=== PATIENT | female | born 1955 | race Caucasian/White ===

== ENCOUNTER → 2017-04-04 | Emergency (ER) | payer MEDICARE, OTHER ==
[~2017-04-04] VITALS: Ht 165.1 cm; Wt 43.1 kg
[~2017-04-04] MED LIST: ATENOLOL25 MG PO; ATENOLOL50 MG PO; BACLOFEN10 MG PO; CATAPRES0.1 MG PO; DURAGESIC1 EAC1 TD; DURAGESIC1 EAC2 TP; DURAGESIC1 EACH TD; HYDROCODON-ACE1 EAC8 PO; LEVAQUIN500 MG PO; ONDANSETRON ODT4 MG PO; PERCOCET 5-3251 EACH PO; PHENERGAN50 MG PR; SYNTHROID125 MCG PO; TRAMADOL HCL50 MG PO; ZOFRAN ODT8 MG SL
== END ==
LOC: ED 03:08
DX: F11.23 Opioid dependence with withdrawal (principal); M79.7 Fibromyalgia; E03.9 Hypothyroidism, unspecified; F17.200 Nicotine dependence, unspecified, uncomplicated; Z90.89 Acquired absence of other organs; Z88.0 Allergy status to penicillin; Z88.2 Allergy status to sulfonamides; Z79.899 Other long term (current) drug therapy
CPT/HCPCS: 80053; 81001; 85025; 96361; 96374; 96375; 99283; J1170; J2405; J7030

== ENCOUNTER → 2017-06-18 | Emergency (ER) | payer MEDICARE, OTHER ==
[~2017-06-18] VITALS: Ht 165.1 cm; Wt 43.1 kg
== END ==
LOC: ED 16:26
DX: R11.2 Nausea with vomiting, unspecified (principal); E03.9 Hypothyroidism, unspecified; F17.200 Nicotine dependence, unspecified, uncomplicated; Z90.89 Acquired absence of other organs; Z88.0 Allergy status to penicillin; Z88.2 Allergy status to sulfonamides; Z79.899 Other long term (current) drug therapy
CPT/HCPCS: 80053; 85025; 96361; 96374; 96375; 99283; J1885; J2550; J7030

== ENCOUNTER 2017-06-19 22:46 | Emergency (ER) | payer MEDICARE, OTHER ==
[~2017-06-19] VITALS: Ht 165.1 cm; Wt 43.5 kg
[~2017-06-19 22:46] MED LIST changes: -PHENERGAN50 MG PR; -TRAMADOL HCL50 MG PO
[2017-06-19] MEDS ORDERED: BACLOFEN10 MG PO (23:06)
[2017-06-20] MEDS ORDERED: PHENERGAN50 MG PR (01:52)
[2017-06-20] MEDS ORDERED: TRAMADOL HCL50 MG PO (01:52)
== END 2017-06-20 02:17 | disposition home or self-care (01) ==
LOC: ED 22:46
DX: K29.00 Acute gastritis without bleeding (principal); F11.23 Opioid dependence with withdrawal; C64.1 Malignant neoplasm of right kidney, except renal pelvis; G89.4 Chronic pain syndrome; E03.9 Hypothyroidism, unspecified; F17.200 Nicotine dependence, unspecified, uncomplicated; Z88.0 Allergy status to penicillin; Z88.2 Allergy status to sulfonamides; Z79.899 Other long term (current) drug therapy; Z79.891 Long term (current) use of opiate analgesic
CPT/HCPCS: 74176; 80053; 81001; 85025; 96361; 96374; 96375; 99284; J1885; J2405; J7030

== ENCOUNTER 2019-04-27 11:50 | Emergency (ER) | payer MEDICARE ==
[~2019-04-27] VITALS: Ht 167.6 cm; Wt 44.9 kg
[~2019-04-27 11:50] MED LIST changes: +NALTREXONE HCL50 MG PO; +PHENERGAN50 MG PR; +TRAMADOL HCL50 MG PO
[2019-04-27] MEDS ORDERED: ONDANSETRON ODT8 MG PO (14:54)
== END 2019-04-27 16:01 | disposition home or self-care (01) ==
LOC: ED 11:50
DX: K52.9 Noninfective gastroenteritis and colitis, unspecified (principal); E03.9 Hypothyroidism, unspecified; F17.200 Nicotine dependence, unspecified, uncomplicated; Z88.0 Allergy status to penicillin; Z88.2 Allergy status to sulfonamides; Z79.899 Other long term (current) drug therapy
CPT/HCPCS: 80053; 81001; 83735; 85025; 96361; 96374; 96375; 96376; 99284-25; J2405; J2550; J7030

== ENCOUNTER 2019-09-23 10:46 | Emergency (ER) | payer MEDICARE ==
[~2019-09-23] VITALS: Ht 167.6 cm; Wt 45.4 kg
[~2019-09-23 10:46] MED LIST changes: +ONDANSETRON ODT8 MG PO
[2019-09-23] MEDS ORDERED: PROMETHAZINE HC25 M1 PO (13:25)
[2019-09-23] MEDS ORDERED: CYCLOBENZAPRINE10 MG PO (13:25)
[2019-09-23] MEDS ORDERED: ONDANSETRON ODT8 MG PO (13:25)
== END 2019-09-23 13:40 | disposition home or self-care (01) ==
LOC: ED 10:46
DX: M54.5 Low back pain (principal); E03.9 Hypothyroidism, unspecified; I10 Essential (primary) hypertension; F17.200 Nicotine dependence, unspecified, uncomplicated; Z88.2 Allergy status to sulfonamides; Z88.0 Allergy status to penicillin; Z79.899 Other long term (current) drug therapy
CPT/HCPCS: 81001; 96372; 99283-25; J1885

== ENCOUNTER 2019-12-19 10:54 | Emergency (ER) | payer MEDICARE ==
[~2019-12-19] VITALS: Ht 167.6 cm; Wt 44.0 kg
--- OUTSIDE RECORDS SUMMARY | ~2019-12-19 | XMS | Encounter Summary ---
Demographics + + + | Address | [address] | | | [place] [address] | + + + | Home Phone | | + + + | Preferred Language | Unknown | + + + | Marital Status | | + + + | Worship Affiliation | Unknown | + + + | Race | Unknown | + + + | Ethnic Group | Unknown | + + + Author + + + | Author | [facility] | | | and [place] | + + + | Organization | [facility] | | | and [place] [...] Team Providers + +------+ + | Care Border Police Name | Role | Phone | + +------+ + PCP | Unavailable | + +------+ + Encounter Details +--------+ + + + + | Date | Type | Department | Care Team | Description | +--------+ + + + + | 11/20/ | Hospital | [facility] | Chilo [facility]atorre | | | 1997 | Encounter | [facility] | | | | | | GENERIC OP CONV DEPT | | | | | | [address] | | | | | | [place] | | | | | | [address] | | | | | | [phone] | | | +--------+ + + + + Social History + +-------+ +--------+------+ | Tobacco [...] on file | | + + + + + + + | Job Start Date | Occupation | Industry | + + + + | Not on file | Not on file | Not on file | + + + + + + + + | Travel History | Travel Start | Travel End | + + + + + + | No recent travel history available. | + + documented as of this encounter Plan of Treatment Not on filedocumented as of this encounter Visit Diagnoses Not on filedocumented in this encounter"
--- OUTSIDE RECORDS SUMMARY | ~2019-12-19 | XMS | Clinical Summary ---
Demographics + + + | Address | [address] | | | [place] [address] | + + + | Home Phone | | + + + | Preferred Language | Unknown | + + + | Marital Status | | + + + | Jainism Affiliation | Unknown | + + + | Race | Unknown | + + + | Ethnic Group | Unknown | + + + Author + + + | Author | [facility] | | | and [place] | + + + | Organization | [facility] | | | and [place] [...] Team Providers + +------+ + | Care Concrete Mixer Truck Driver Name | Role | Phone | + [...] recent travel history available. | + + Last Filed Vital Signs Not on file Plan of Treatment + + + + + | Health Maintenance | Due Date | Last Done | Comments | + + + + + | Vaccine: | | | | | Dtap/Tdap/Td (1 - | 9 | | | | Tdap) | | | | + + + + + | Cervical Cancer | | | | | Screening (Pap) | 8 | | | + + + + + | Vaccine: Zoster (1 | | | | | of 2) | 8 | | | + + + + + | Breast Cancer | | | | | Screening | 3 | | | + + + + + | Vaccine: Influenza | | | | | (Season Ended) | 0 | | | + + + + + Results Not on filefrom Last 3 [...] +--------+ +---------+--------+ | MEDICARE | MEDICA | [id number] | 10/02/19 | [phone] | | Medica [...] Paul V | Person | Self | [birth year] | [address] | | | al/Fam | | 1956 | [phone] | [place] [address] | | | ean | | | 5 (Home) | | + +--------+ +--------+ + +"
--- OUTSIDE RECORDS SUMMARY | ~2019-12-19 | XMS | Clinical Summary ---
Demographics + + + | Address | [address] | | | [place] [address] | + + + | Home Phone | | + + + | Preferred Language | Unknown | + + + | Marital Status | | + + + | Jain Affiliation | Unknown | + + + | Race | Unknown | + + + | Ethnic Group | Unknown | + + + Author + + + | Author | [facility] | | | and [place] | + + + | Organization | [facility] | | | and [place] [...] Team Providers + +------+ + | Care Glued Wood Tester Name | Role | Phone | + [...] +--------+ +---------+--------+ | MEDICARE | MEDICA | [id number] | 10/02/19 | [phone] | | Medica [...] | 1956 | [phone] | [place] [address] | | | ean | | | 5 (Home) | | + +--------+ +--------+ + +"
--- OUTSIDE RECORDS SUMMARY | ~2019-12-19 | XMS | Encounter Summary ---
Demographics + + + | Address | [address] | | | [place] [address] | + + + | Home Phone | | + + + | Preferred Language | Unknown | + + + | Marital Status | | + + + | Mosque Affiliation | Unknown | + + + | Race | Unknown | + + + | Ethnic Group | Unknown | + + + Author + + + | Author | [facility] | | | and [place] | + + + | Organization | [facility] | | | and [place] [...] Team Providers + +------+ + | Care Otolaryngology Rep Name | Role | Phone | + +------+ + PCP | Unavailable | + +------+ + Encounter Details +--------+ + + + + | Date | Type | Department | Care Team | Description | +--------+ + + + + | 11/20/ | Hospital | [facility] | [facility] | | | 1997 | Encounter | [facility] | | | | | | GENERIC OP CONV DEPT | | | | | | [address] | | | | | | [place] | | | | | | [address] | | | | | | [phone] | | | +--------+ + + + [...]
[~2019-12-19 10:54] MED LIST changes: +CALTRATE 600 +1 EAC1 PO; +CYCLOBENZAPRINE10 MG PO; +INLYTA5 MG PO; +LAXATIVE5 M1 PO; +NORCO 7.5-3251 EACH PO; +OXYCODONE HCL10 MG PO; +OXYCODONE HCL5 MG PO; +OXYCONTIN10 MG PO; +PROMETHAZINE HC25 M1 PO
[2019-12-19] MEDS ORDERED: DILT-XR120 MG PO (11:11)
[2019-12-19] MEDS ORDERED: TRAMADOL HCL100 M2 PO (11:11)
[2019-12-19] MEDS ORDERED: PROCHLORPERAZIN10 MG PO (15:00)
[2019-12-19] MEDS ORDERED: DILAUDID2 MG PO (15:23)
== END 2019-12-19 15:18 | disposition home or self-care (01) ==
LOC: ED 10:54
DX: C64.9 Malignant neoplasm of unspecified kidney, except renal pelvis (principal); E86.0 Dehydration; E03.9 Hypothyroidism, unspecified; I10 Essential (primary) hypertension; Z87.891 Personal history of nicotine dependence; Z88.0 Allergy status to penicillin; Z88.2 Allergy status to sulfonamides; Z79.899 Other long term (current) drug therapy
CPT/HCPCS: 80053; 81001; 83735; 85025; 96361; 96374; 96375; 99284-25; J1170; J1790; J2405; J2550; J7030

== ENCOUNTER 2020-02-09 08:00 | Emergency (ER) | payer MEDICARE ==
[~2020-02-09] VITALS: Ht 167.6 cm; Wt 40.4 kg
--- OUTSIDE RECORDS SUMMARY | ~2020-02-09 | XMS | Clinical Summary ---
Demographics + + + | Address | [address] | | | [place] [address] | + + + | Home Phone | | + + + | Preferred Language | Unknown | + + + | Marital Status | | + + + | Latter-Day Affiliation | Unknown | + + + | Race | Unknown | + + + | Ethnic Group | Unknown | + + + Author + + + | Author | [facility] | | | and [place] | + + + | Organization | [facility] | | | and [place] | + + + | Address | Unknown | + + + | Phone | Unavailable | + + + Support + + +---------+ + | Name | Relationship | Address | Phone | + + +---------+ + | Nerissa Paul | ECON | Unknown | | + + +---------+ + | Kehidne Paul | ECON | Unknown | | + + +---------+ + Care Team Providers + +------+ + | Care Bakery Associate Name | Role | Phone | + [...] +--------+ +---------+--------+ | MEDICARE | MEDICA | [id number] | 10/02/19 | [phone] | | Medica [...] | 1956 | [phone] | [place] [address] | | | ean | | | 5 (Home) | | + +--------+ +--------+ + +"
--- OUTSIDE RECORDS SUMMARY | ~2020-02-09 | XMS | Encounter Summary ---
Demographics + + + | Address | [address] | | | [place] [address] | + + + | Home Phone | | + + + | Preferred Language | Unknown | + + + | Marital Status | | + + + | Alevism Affiliation | Unknown | + + + | Race | Unknown | + + + | Ethnic Group | Unknown | + + + Author + + + | Author | [facility] | | | and [place] | + + + | Organization | [facility] | | | and [place] [...] Team Providers + +------+ + | Care Activity Director Name | Role | Phone | + +------+ + PCP | Unavailable | + +------+ + Encounter Details +--------+ + + + + | Date | Type | Department | Care Team | Description | +--------+ + + + + | 11/20/ | Hospital | [facility] | [facility] | | | 1997 | Encounter | [facility] | | | | | | GENERIC OP CONV DEPT | | | | | | [address] | | | | | | [place] | | | | | | [address] | | | | | | [phone] | | | +--------+ + + + [...]
[~2020-02-09 08:00] MED LIST changes: +DILAUDID2 MG PO; +DILT-XR120 MG PO; +PROCHLORPERAZIN10 MG PO; +TRAMADOL HCL100 M2 PO; +XTAMPZA ER18 MG PO
[2020-02-09] MEDS ORDERED: PROMETHAZINE HC25 MG PR (10:43)
== END 2020-02-09 10:55 | disposition home or self-care (01) ==
LOC: ED 08:00
DX: C79.01 Secondary malignant neoplasm of right kidney and renal pelvis (principal); C80.1 Malignant (primary) neoplasm, unspecified; I10 Essential (primary) hypertension; Z87.891 Personal history of nicotine dependence; Z88.0 Allergy status to penicillin; Z88.2 Allergy status to sulfonamides; Z79.899 Other long term (current) drug therapy
CPT/HCPCS: 80053; 81001; 83605; 83690; 83735; 85025; 96361; 96374; 96375; 99284-25; J1170; J2405; J7030

== ENCOUNTER 2020-02-10 19:35 | Inpatient (IN) | payer MEDICARE, OTHER ==
[~2020-02-10] VITALS: Ht 167.6 cm; Wt 40.4 kg
--- OUTSIDE RECORDS SUMMARY | ~2020-02-10 | XMS | Clinical Summary ---
Demographics + + + | Address | [address] | | | [place] [address] | + + + | Home Phone | | + + + | Preferred Language | Unknown | + + + | Marital Status | | + + + | Church Affiliation | Unknown | + + + | Race | Unknown | + + + | Ethnic Group | Unknown | + + + Author + + + | Author | [facility] | | | and [place] | + + + | Organization | [facility] | | | and [place] | + + + | Address | Unknown | + + + | Phone | Unavailable | + + + Support + + +---------+ + | Name | Relationship | Address | Phone | + + +---------+ + | Nerissa Paul | ECON | Unknown | | + + +---------+ + | Kehinde Paul | ECON | Unknown | | + + +---------+ + Care Team Providers + +------+ + | Care Mineral Surveyor Name | Role | Phone | + +------+ + | Bernadine Mar | PCP | | + +------+ + Allergies Not on File Medications Not on file Active Problems Not on file Social History + +-------+ +--------+------+ | Tobacco Use | Types | Packs/Day | Years | Date | | | | | Used | | + +-------+ +--------+------+ | Never Assessed | | | | | + +-------+ +--------+------+ + + + | Sex Assigned at | Date Recorded | | | | + + + | Not on file | | + + + Last Filed Vital Signs Not on file Plan of Treatment + + +-------+ + | Health Maintenance | Due Date | Last | Comments | | | | Done | | + + +-------+ + | Vaccine: | | | | | Dtap/Tdap/Td (1 - | 7 | | | | Tdap) | | | | + + +-------+ + | Cervical Cancer | | | | | Screening (Pap) | 8 | | | + + +-------+ + | Vaccine: Zoster (1 | | | | | of 2) | 8 | | | + + +-------+ + | Breast Cancer | | | | | Screening | 3 | | | + + +-------+ + | Vaccine: Influenza | | | | | (#1) | 0 | | | + + +-------+ + Results Not on filefrom Last 3 Months Insurance + +--------+ +--------+ +---------+--------+ | Payer | Benefi | Subscriber | Effect | Phone | Address | Type | | | t Plan | ID | rochelle | | | | | | / | | Dates | | | | | | Group | | | | | | + +--------+ +--------+ +---------+--------+ | MEDICARE | MEDICA | [id number] | 10/02/19 | [phone] | | Medica | | | RE | | 07-Pre | 5 | | re | | | PART A | | sent | | | | | | AND B | | | | | | + +--------+ +--------+ +---------+--------+ + +--------+ +--------+ + + | Guarantor Name | Accoun | Relation to | Date | Phone | Billing Address | | | t Type | Patient | of | | | | | | | | | | + +--------+ +--------+ + + | Nando Paul V | Person | Self [birth year] | [address] | | | al/Fam | | 1956 | [phone] | [place] [address] | | | ean | | | 5 (Home) | | + +--------+ +--------+ + +"
--- OUTSIDE RECORDS SUMMARY | ~2020-02-10 | XMS | Encounter Summary ---
Demographics + + + | Address | [address] | | | [place] [address] | + + + | Home Phone | | + + + | Preferred Language | Unknown | + + + | Marital Status | | + + + | Jain Affiliation | Unknown | + + + | Race | Unknown | + + + | Ethnic Group | Unknown | + + + Author + + + | Author | [facility] | | | and [place] | + + + | Organization | [facility] | | | and [place] | + + + | Address | Unknown | + + + | Phone | Unavailable | + + + Support + + +---------+ + | Name | Relationship | Address | Phone | + + +---------+ + | Nerissa Paul | ECON | Unknown | | + + +---------+ + | eKhinde Paul | ECON | Unknown | | + + +---------+ + Care Team Providers + +------+ + | Care Handkerchief Cutter Name | Role | Phone | + +------+ + PCP | Unavailable | + +------+ + Encounter Details +--------+ + + + + | Date | Type | Department | Care Team | Description | +--------+ + + + + | 11/20/ | Hospital | [facility] | Chilo [facility]re | | | 1997 | Encounter | [facility] | | | | | | GENERIC OP CONV DEPT | | | | | | [address] | | | | | | [place] | | | | | | [address] | | | | | | [phone] | | | +--------+ + + + [...]
--- OUTSIDE RECORDS SUMMARY | ~2020-02-10 | XMS | Clinical Summary ---
Demographics + + + | Address | [address] | | | [place] [address] | + + + | Home Phone | | + + + | Preferred Language | Unknown | + + + | Marital Status | | + + + | Zoroastrianism Affiliation | Unknown | + + + | Race | Unknown | + + + | Ethnic Group | Unknown | + + + Author + + + | Author | [facility] | | | and [place] | + + + | Organization | [facility] | | | and [place] [...] Team Providers + +------+ + | Care Supervisor Fleshing Name | Role | Phone | + [...] +--------+ +---------+--------+ | MEDICARE | MEDICA | [id number] | 10/02/19 | [phone] | | Medica [...] | 1956 | [phone] | [place] [address] | | | ean | | | 5 (Home) | | + +--------+ +--------+ + +"
--- OUTSIDE RECORDS SUMMARY | ~2020-02-10 | XMS | Encounter Summary ---
Demographics + + + | Address | [address] | | | [place] [address] | + + + | Home Phone [...] | Author | [facility] | | | and [place] | + + + | Organization | [facility] | | | and [place] [...] Team Providers + +------+ + | Care Clinical Project Coordinator Name | Role | Phone | + +------+ + PCP | Unavailable | + +------+ + Encounter Details +--------+ + + + + | Date | Type | Department | Care Team | Description | +--------+ + + + + | 11/20/ | Hospital | [facility] | Chilo Alatorre | | | 1997 | Encounter | [facility] | | | | | | GENERIC OP CONV DEPT | | | | | | [address] | | | | | | [place] | | | | | | [address] | | | | | | [phone] | | | +--------+ + + + [...]
[~2020-02-10 19:35] MED LIST changes: +PROMETHAZINE HC25 MG PR
--- NOTE | 2020-02-10 23:00 | NUR ---
REPORT RECIEVED FROM HUB ASSOCIATE. PT TRANSPORTED BY VARNISH MAKER ON STRETCHER. DONOR RELATIONS OFFICER. PT ALERT AND ORIENTED UPON ARRIVAL. ABLE TO ASSIST IN MOVING FROM STRETCHER TO BED.
--- NOTE | 2020-02-10 23:52 | NUR ---
INITIAL ASSESSMENT COMPLETED. IV FLUIDS, MAGNESIUM, AND POTASSIUM INFUSING AT THIS TIME. PT GIVEN PAIN MEDICATION FOR GENERALIZED PAIN SHE RATED 8/10 (SEE EMAR). HEART RATE 90-115 AT REST. INCREASED INTO THE 130S WITH MOVEMENT. PT DENIES HAVING A HISTORY OF AFIB. PT SPO2 AT 99 PERCENT ON 2 L NC. RESPIRATIONS EVEN AND UNLABORED. UPON AUSCULTATION CRACKLES NOTED IN LEFT LOWER BASE. ALL OTHER HARRIS CLEAR.
--- NOTE | 2020-02-11 00:01 | NUR ---
PT COMPLAINS OF NAUSEA. PRN MEDICATION GIVEN AT THIS TIME (SEE EMAR).
--- NOTE | 2020-02-11 01:15 | NUR ---
PT RESTING. IV FLUIDS AND POTASSIUM CONTINUE TO INFUSE. BREATHING EVEN AND UNLABORED. HR 100-115 AT REST. NO FURTHER COMPLAINTS OF NAUSEA AT THIS TIME.
--- NOTE | 2020-02-11 01:50 | NUR ---
IN ROOM FOR MEDICATION ADMINISTRATION. PT STATES PAIN HAS RETURNED. PRN MEDICATION GIVEN (SEE EMAR). PT UP TO BEDSIDE COMMODE TO VOID. STEADY ON FEET. HEART RATE UP INTO THE 130S WITH ACTIVITY. PT BACK IN BED. IV FLUIDS AND POTASSIUM INFUSING. CALL LIGHT WITHIN REACH. WILL CONTINUE TO MONITOR.
--- NOTE | 2020-02-11 03:13 | NUR ---
PT REPORTS BEING NAUSEATED. PRN MEDICATION GIVEN AT THIS TIME (SEE EMAR).
--- NOTE | 2020-02-11 04:27 | NUR ---
PT ASSESSMENT COMPLETED AT THIS TIME. PT REPORTS NAUSEA HAS RESOLVED. HEART RATE MORE CONSISTENTLY IN THE 90-100. SPO2 = 100 PERCENT ON 2 L NC. SUPLEMENTAL 02 REMOVED AT THIST TIME. BREATH EVEN AND UNLABORED. LUNGS CLEAR THROUGH OUT. IV FLUIDS CONTINUE TO INFUSE. NO FURTHER NEEDS AT THIS TIME.
--- NOTE | 2020-02-11 05:15 | NUR ---
LAB IN ROOM FOR BLOOD DRAW
--- NOTE | 2020-02-11 06:01 | NUR ---
PT REQUESTING PAIN MEDICATION FOR 8/10 GENERALIZED PAIN. PRN MEDICATION ADMINISTERED (SEE EMAR).
--- NOTE | 2020-02-11 06:15 | NUR ---
DR JOHNSON UPDATED ON PTS BLOOD PRESSURES AND HEART RATE TRENDING UP. DR JOHNSON ALSO UPDATED ON PT LOW URINE OUTPUT. ORDERS RECIVED ( SEE EMAR).
--- NOTE | 2020-02-11 06:39 | NUR ---
PT STARTED ON DILTIAZEM DRIP AT 5 MG/ HR.
--- NOTE | 2020-02-11 06:41 | NUR ---
pT HAS BEEN ALERT AND ORIENTED THROUGH OUT THE SHIFT. HEART RATE FOR MAJORITY OF SHIFT WAS BETWEEN 95-115, WITH INCREASES WHILE TALKING OR MOVING INTO THE 140S. HEART RATED NOTED TO BE TRENDING UP INTO THE 120-130 MORE REGULARLY, WITH MORE FREQUENT EPISODES OF HEART RATE REACHING 150S. IV LOPRESSOR GIVEN EARLY, BUT HEART RATE CONTINUED TO BE ELEVATED. PLACED ON DILTIAZEM DRIP AT 0615. BLOOD PRESSURES HAVE TRENDED UP THROUGH THE NIGHT WELL. PTS HAD CRACKLES IN LEFT LOWER BASE DURING INITIAL ASSESSMENT. CRACKLES CLEARED AT 4 AM ASSESSMENT. PT URINE OUTPUT LOW.
--- NOTE | 2020-02-11 09:14 | EKG ---
[facility] [address] [place], [place] [address] Signed Atrial fibrillation with rapid ventricular response Anteroseptal infarct , age undetermined ST \T\ T wave abnormality, consider inferolateral ischemia Abnormal ECG No previous ECGs available Confirmed by VIVIANA JOHNSON MD ([id number]) on 02/11/2020 9:14:01 AM Electronically Signed By: VIVIANA JOHNSON MD 02/11/20 0914 PATIENT NAME: TREYBLANEINESSA SHARIF Electrocardiogram DATE OF : 59 PHYSICIAN: VIVIANA JOHNSON MD REPORT #: [id number] REPORT IS CONFIDENTIAL AND NOT TO BE RELEASED WITHOUT AUTHORIZATION
--- NOTE | 2020-02-11 09:25 | NUR ---
PATIENT SITTING UP IN BED EATING HER CLEAR LIQUID TRAY. PT WAS MEDICATED FOR PAIN (SEE EMAR) AROUND 0900.
--- NOTE | 2020-02-11 10:59 | NUR ---
DR. JOHNSON IN TO SEE PATIENT. PATIENT WILL BE ADVANCED ON HER DIET AND SWITCHED TO ORAL MEDICATIONS. LUNCH ORDERED FOR PATIENT.
--- NOTE | 2020-02-11 12:09 | NUR ---
PATIENT SITTING UP EATING LUNCH AT THIS TIME. PT GIVEN ORAL MEDICATIONS AND DISCUSSED MEDICATION SIDE EFFECTS WITH PATIENT. PATIENT ABLE TO VERBALIZE UNDERSTANDING. DILT GTT REMAINS ON AT 5 MG/HR AND WILL BE TURNED OFF AROUND 1300, AN HOUR AFTER ORAL MEDICATIONS WERE GIVEN. PT EXPECTING HER DAUGHTER TO ARRIVE WITH HER HOME MEDICATIONS, INCLUDING HER ORAL CHEMO MEDICATION.
[2020-02-11] MEDS ORDERED: PROCHLORPERAZIN10 MG PO (13:36)
--- NOTE | 2020-02-11 15:43 | NUR ---
PATIENT RESTING IN BED AT THIS TIME. ICE PACK MADE FOR PATIENT FOR HER LEFT ARM WHERE HER IV WAS AND THE BLOOD PRESSURE CUFF HAS BEEN ON. PATIENT DENIES FURTHER NEEDS. DILT GTT HAS BEEN OFF SINCE 1300. PT REMAINS IN SINUS WITH SOME PACs NOTED BUT NOT FURTHER AFIB OR AFLUTTER.
--- NOTE | 2020-02-11 16:31 | NUR ---
Medications reconciled using pharmacy records and patient interview. Patient will take her own Inlyta chemo med while an impatient. Please use precautions, medication is considered teratogenic. Please assure that medication is returned to patient upon discharge
--- NOTE | 2020-02-11 17:09 | NUR ---
VITALS CHARTED. PATIENT UP IN BED EATING DINNER. CALL LIGHT IN REJ
--- NOTE | 2020-02-11 17:59 | NUR ---
PATIENT AGREEABLE TO STAY TONIGHT AND LIKELY D/C TOMORROW. PT WANTING TO D/C HOME TONIGHT, BUT STILL HAD SOME RUNS OF AFIB AROUND 1230. PT IS NOW OFF IVF AND DILT GTT REMAINS OFF. HR IN THE 60s SINUS. CONTINUE TO MONITOR.
--- NOTE | 2020-02-11 19:44 | NUR ---
PT REPORT RECIEVED, CARE OF PATIENT ASSUMED AT THIS TIME. PT COMPLAINS OF 8/10 PAIN. PRN PAIN MEDICATION ADMINISTERED. PT AWARE THAT SHE WILL BE TRANSFERING TO MEDICAL FLOOR. ALL QUESTIONS ANSWERED. NO FURTHER NEEDS AT THIS TIME.
--- NOTE | 2020-02-11 19:52 | NUR ---
tele monitor put on pt. pt's items gathered and is ready for transport. VS taken by this ORTHOPEDIC PHYSICIAN ASSISTANT and WILLIS Ding recorded.
--- NOTE | 2020-02-11 20:11 | NUR ---
pt report given to stand up comedian. pt transported via bed on telemetry. all belonging taken with pt.
--- NOTE | 2020-02-11 20:26 | NUR ---
PT IS ORIENTED TO THE UNIT AND CALL LIGHT IS CLOSE. SHE DENIES NEEDS AT THIS TIME. CHEMO MED PUT IN KITSLIST.
--- NOTE | 2020-02-11 22:27 | NUR ---
ASSESSMENT, VS AND I&O COMPLETED. LUNGS CLEAR, BOWEL TONES ACTIVE. SCATTERED BRUISING NOTED. NO EDEMA. PAIN 6/10, ICE PACKS PROVIDED. ICE WATER PROVIDED. CMS INTACT. NO OTHER NEEDS AT THIS TIME. CALL LIGHT IN REACH.
--- NOTE | 2020-02-12 00:19 | NUR ---
PT STATES PAIN IS 8/10, PRN PAIN MED PROVIDED. NO OTHER NEEDS AT THIS TIME. CALL LIGHT IN REACH.
--- NOTE | 2020-02-12 02:05 | NUR ---
PT RESTING IN BED, EYES CLOSED. RR EVEN, UNLABORED. CALL LIGHT IN REACH.
--- NOTE | 2020-02-12 04:05 | NUR ---
PT RESTING IN BED, EYES CLOSED. RR EVEN, UNLABORED. CALL LIGHT IN REACH.
--- NOTE | 2020-02-12 06:29 | NUR ---
ASSESSMENT, VS AND I&O COMPLETED. PAIN 7/10, PRN PAIN MED PROVIDED. PT REPORTS NAUSEA, PRN NAUSEA MED PROVIDED. IV WNL. LUNGS CLEAR. BOWEL TONES ACTIVE. ICE WATER PROVIDED. ICE PACK PROVIDED. NO OTHER NEEDS AT THIS TIME. CALL LIGHT IN REACH.
--- NOTE | 2020-02-12 07:59 | NUR ---
PT RESTING IN BED DENIES DISCOMFORTS OR NEEDS OF. REFUSES BREAKFAST ANTICIPATING DC.
[2020-02-12] MEDS ORDERED: KEYTRUDA100 MG/4 M IV (08:15)
--- NOTE | 2020-02-12 08:41 | NUR ---
PATIENT RESTING IN BED. WHITE BOARD UPDATED. PATIENT REFUSED TO TAKE A SHOWER BECAUSE SHE SAYS SHE IS GOING TO BE DISCHARGE HOME AND PREFERS TO TAKE A SHOWER AT HOME. CALL LIGHT WITHIN REACH. NO OTHER NEEDS AT THIS TIME.
--- NOTE | 2020-02-12 10:09 | NUR ---
DR JOHNSON IN TO SEE PT DC PLANS DISCUSSED QUESTIONS ANSWERED
[2020-02-12] MEDS ORDERED: ATENOLOL50 MG PO (10:23)
== END 2020-02-12 10:45 | disposition home or self-care (01) | DRG 309 ==
LOC: ED 19:35 → CCU 22:04 → MS 02-11 20:15
PROVIDERS: ADMIT Internal Medicine
DX: I48.0 Paroxysmal atrial fibrillation (principal); N17.9 Acute kidney failure, unspecified; C64.1 Malignant neoplasm of right kidney, except renal pelvis; C78.00 Secondary malignant neoplasm of unspecified lung; C79.51 Secondary malignant neoplasm of bone; C79.2 Secondary malignant neoplasm of skin; C79.02 Secondary malignant neoplasm of left kidney and renal pelvis; Z20.828 Contact with and (suspected) exposure to other viral communicable diseases; E86.0 Dehydration; E83.42 Hypomagnesemia; G89.3 Neoplasm related pain (acute) (chronic); T45.1X5A Adverse effect of antineoplastic and immunosuppressive drugs, initial encounter; I10 Essential (primary) hypertension; K29.70 Gastritis, unspecified, without bleeding; Z87.891 Personal history of nicotine dependence; Z88.0 Allergy status to penicillin; Z88.2 Allergy status to sulfonamides; Z79.899 Other long term (current) drug therapy; Z79.891 Long term (current) use of opiate analgesic
CPT/HCPCS: 36415; 71045; 80048; 80053; 83690; 83735; 84484; 85025; 93005; 93010; 96361; 96374; 96375; 99285-25; C9803; J0780; J1650; J2405; J3010; J3475; J3480; J7030; J7121; U0002

== ENCOUNTER 2020-04-03 14:23 | Emergency (ER) | payer MEDICARE ==
[~2020-04-03] VITALS: Ht 167.6 cm; Wt 38.1 kg
--- OUTSIDE RECORDS SUMMARY | ~2020-04-03 | XMS | Encounter Summary ---
Demographics + + + | Address | [address] | | | [place] [address] | + + + | Home Phone | | + + + | Preferred Language | Unknown | + + + | Marital Status | | + + + | Congregation Affiliation | Unknown | + + + | Race | White | + + + | Ethnic Group | Not or | + + + Author + + + | Author | [facility] | | | and [place] | + + + | Organization | [facility] | | | [...] Team Providers + +------+ + | Care Full Stack Web Developer Name | Role | Phone | + +------+ + PCP | Unavailable | + +------+ + Encounter Details +--------+ + + + + | Date | Type | Department | Care Team | Description | +--------+ + + + + | 11/20/ | Hospital | [facility] | Chilo [facility]atorre | | | 1997 | Encounter | [facility] | | | | | | GENERIC OP CONV DEPT | | | | | | [address] | | | | | | [place], [place] | | | | | | [address] | | | | | | [phone] | | | +--------+ + + + [...]
--- OUTSIDE RECORDS SUMMARY | ~2020-04-03 | XMS | Clinical Summary ---
Demographics + + + | Address | [address] | | | [place] [address] | + + + | Home Phone | | + + + | Preferred Language | Unknown | + + + | Marital Status | | + + + | Jainism Affiliation | Unknown | + + + | Race | White | + + + | Ethnic Group | Not or | + + + Author + + + | Author | [facility] | | | and [place] | + + + | Organization | [facility] | | | [...] Team Providers + +------+ + | Care Headlight Assembler Name | Role | Phone | + [...] +--------+ +---------+--------+ | MEDICARE | MEDICA | [id number] | 10/02/19 | [phone] | | Medica [...] | 1956 | [phone] | [place] [address] | | | ean | | | 5 (Home) | | + +--------+ +--------+ + + | Nando Paul V | Person | Self | [birth year] | | [address] | | | al/Fam | | 1956 | [phone] | [place] [address] | | | ean | | | 5 (Home) | | + +--------+ +--------+ + +"
[~2020-04-03 14:23] MED LIST changes: +KEYTRUDA100 MG/4 M IV
[2020-04-03] MEDS ORDERED: CITALOPRAM HBR10 MG PO (14:35)
[2020-04-03] MEDS ORDERED: CHILDREN'S ASPI81 M1 PO (14:35)
[2020-04-03] MEDS ORDERED: XTAMPZA ER18 MG PO (14:36)
[2020-04-03] MEDS ORDERED: HYDROMORPHONE HC2 MG PO (14:37)
[2020-04-03] MEDS ORDERED: ATIVAN1 MG PO (14:38)
--- NOTE | 2020-04-04 15:20 | EKG ---
[facility] [address] [place] [address] Signed Sinus rhythm with marked sinus arrhythmia Right atrial enlargement Anteroseptal infarct (cited on or before 10-FEB-2020) Abnormal ECG When compared with ECG of 10-FEB-2020 19:42, Sinus rhythm has replaced Atrial fibrillation Vent. rate has decreased BY 59 BPM Non-specific change in ST segment in Inferior leads T wave inversion no longer evident in Inferior leads T wave inversion more evident in Anterior leads Confirmed by EUSEBIO VEGA MD ([id number]) on 04/04/2020 3:20:26 PM Electronically Signed By: EUSEBIO VEGA MD 04/04/20 1520 PATIENT NAME: VERNA YANG Electrocardiogram DATE OF : 59 PHYSICIAN: EUSEBIO VEGA MD REPORT #: [id number] REPORT IS CONFIDENTIAL AND NOT TO BE RELEASED WITHOUT AUTHORIZATION
== END 2020-04-03 19:30 | disposition home or self-care (01) ==
LOC: ED 14:23
DX: C78.7 Secondary malignant neoplasm of liver and intrahepatic bile duct (principal); C80.1 Malignant (primary) neoplasm, unspecified; E03.9 Hypothyroidism, unspecified; I10 Essential (primary) hypertension; F17.200 Nicotine dependence, unspecified, uncomplicated; Z88.0 Allergy status to penicillin; Z88.2 Allergy status to sulfonamides; Z79.899 Other long term (current) drug therapy
CPT/HCPCS: 80053; 81001; 83690; 83735; 84484; 85025; 93005; 93010; 96361; 96374; 96375; 99284-25; J0780; J2405; J2765; J3010; J7030

== ENCOUNTER 2020-04-05 08:52 | Emergency (ER) | payer MEDICARE ==
[~2020-04-05] VITALS: Ht 167.6 cm; Wt 38.1 kg
--- OUTSIDE RECORDS SUMMARY | ~2020-04-05 | XMS | Encounter Summary ---
Demographics + + + | Address | [address] | | | [place] [address] | + + + | Home Phone | | + + + | Preferred Language | Unknown | + + + | Marital Status | | + + + | Faith Affiliation | Unknown | + + + | Race | White | + + + | Ethnic Group | Not or | + + + Author + + + | Author | [facility] | | | and [place] | + + + | Organization | [facility] | | | and [place] | + + + | Address | [...] Team Providers + +------+ + | Care Nurses Educator Name | Role | Phone | + +------+ + PCP | Unavailable | + +------+ + Encounter Details +--------+ + + + + | Date | Type | Department | Care Team | Description | +--------+ + + + + | 11/20/ | Hospital | [facility] | [facility] | | | 1997 | Encounter | [facility] | | | | | | GENERIC OP CONV DEPT | | | | | | [address] | | | | | | [place], [place] | | | | | | [address] | | | | | | [phone] | | | +--------+ + + + [...] on file | | + + + documented as of this encounter Plan of Treatment Not on filedocumented as of this encounter Visit Diagnoses Not on filedocumented in this encounter"
--- OUTSIDE RECORDS SUMMARY | ~2020-04-05 | XMS | Clinical Summary ---
Demographics + + + | Address | [address] | | | [place] [address] | + + + | Home Phone | | + + + | Preferred Language | Unknown | + + + | Marital Status | | + + + | Jainism Affiliation | Unknown | + + + | Race | White | + + + | Ethnic Group | Not or | + + + Author + + + | Author | [facility] | | | and [place] | + + + | Organization | [facility] | | | and [...] Team Providers + +------+ + | Care Log Hauler Name | Role | Phone | + +------+ + | Bernadine Mar | PCP | Unavailable | + +------+ + Allergies Not on [...] +--------+ +---------+--------+ | MEDICARE | MEDICA | [id number] | 10/02/19 | [phone] | | Medica [...] Paul V | Person | Self | [birth year][address] | | [address] | | | al/Fam | | 1956 | [phone] | [place] [address] | | | ean | | | 5 (Home) | | + +--------+ +--------+ + + | Nando Paul V | Person | Self | [address] | | [address] | | | al/Fam | | 1956 | [phone] | [place] [address] | | | ean | | | 5 (Home) | | + +--------+ +--------+ + +"
[~2020-04-05 08:52] MED LIST changes: +ATIVAN1 MG PO; +CHILDREN'S ASPI81 M1 PO; +CITALOPRAM HBR10 MG PO; +HYDROMORPHONE HC2 MG PO
--- NOTE | 2020-04-05 17:25 | EKG ---
[facility] [address] [facility] [place] [address] Signed Sinus rhythm with premature atrial complexes with aberrant conduction Right atrial enlargement Anterior infarct (cited on or before 10-FEB-2020) ST \T\ T wave abnormality, consider lateral ischemia Abnormal ECG When compared with ECG of 05-APR-2020 09:00, (Unconfirmed) No significant change was found Confirmed by EUSEBIO VEGA MD ([id number]) on 04/05/2020 5:25:03 PM Electronically Signed By: EUSEBIO VEGA MD 04/05/20 1725 PATIENT NAME: VERNA YANG Electrocardiogram DATE OF : 59 PHYSICIAN: EUSEBIO VEGA MD REPORT #: [id number] REPORT IS CONFIDENTIAL AND NOT TO BE RELEASED WITHOUT AUTHORIZATION
--- NOTE | 2020-04-05 17:25 | EKG ---
[facility] [address] [facility] [place] [address] Signed Sinus rhythm with premature atrial complexes with aberrant conduction Right atrial enlargement Anteroseptal infarct (cited on or before 10-FEB-2020) ST \T\ T wave abnormality, consider lateral ischemia Abnormal ECG When compared with ECG of 05-APR-2020 08:58, (Unconfirmed) Significant changes have occurred Confirmed by EUSEBIO VEGA MD ([id number]) on 04/05/2020 5:24:49 PM Electronically Signed By: EUSEBIO VEGA MD 04/05/20 1725 PATIENT NAME: VERNA YANG Electrocardiogram DATE OF : 59 PHYSICIAN: EUSEBIO VEGA MD REPORT #: [id number] REPORT IS CONFIDENTIAL AND NOT TO BE RELEASED WITHOUT AUTHORIZATION
== END 2020-04-05 13:04 | disposition home or self-care (01) ==
LOC: ED 08:52
DX: I48.91 Unspecified atrial fibrillation (principal); C79.00 Secondary malignant neoplasm of unspecified kidney and renal pelvis; E78.5 Hyperlipidemia, unspecified; E03.9 Hypothyroidism, unspecified; I10 Essential (primary) hypertension; Z87.891 Personal history of nicotine dependence; Z88.0 Allergy status to penicillin; Z88.2 Allergy status to sulfonamides; Z79.899 Other long term (current) drug therapy
CPT/HCPCS: 71045; 80053; 81001; 83735; 84484; 85025; 93005; 93010; 96361; 96374; 99285-25; J3010; J7030

== ENCOUNTER 2020-05-10 09:18 | Emergency (ER) | payer MEDICARE, OTHER ==
[~2020-05-10] VITALS: Ht 167.6 cm; Wt 41.3 kg
--- OUTSIDE RECORDS SUMMARY | ~2020-05-10 | XMS | Encounter Summary ---
Demographics + + + | Address | [address] | | | [place] [address] | + + + | Home Phone | | + + + | Preferred Language | Unknown | + + + | Marital Status | | + + + | Jainism Affiliation | Unknown | + + + | Race | White | + + + | Ethnic Group | Not or | + + + Author + + + | Author | [facility] | | | and [place] | + + + | Organization | [facility] | | | and [...] Team Providers + +------+ + | Care Cooler Man Name | Role | Phone | + +------+ + PCP | Unavailable | + +------+ + Encounter Details +--------+ + + + + | Date | Type | Department | Care Team | Description | +--------+ + + + + | 11/20/ | Hospital | [facility] | [facility] | | | 1997 | Encounter | [facility] | | | | | | GENERIC OP CONV DEPT | | | | | | [address] | | | | | | [place], [place] | | | | | | [address] | | | | | | [phone] | | | +--------+ + + + [...]
--- OUTSIDE RECORDS SUMMARY | ~2020-05-10 | XMS | Clinical Summary ---
Demographics + + + | Address | [address] | | | [place] [address] | + + + | Home Phone | | + + + | Preferred Language | Unknown | + + + | Marital Status | | + + + | Presybeterian Affiliation | Unknown | + + + | Race | White | + + + | Ethnic Group | Not or | + + + Author + + + | Author | [facility] | | | and [place] | + + + | Organization | [facility] | | | and [...] Team Providers + +------+ + | Care Technology Sales Specialist Name | Role | Phone | + [...] +--------+ +---------+--------+ | MEDICARE | MEDICA | [id number] | 10/02/19 | [phone] | | Medica [...] | 1956 | [phone] | [place] [address] | | | ean | | | 5 (Home) | | + +--------+ +--------+ + +"
== END 2020-05-10 15:57 | disposition home or self-care (01) ==
LOC: ED 09:18
DX: R11.2 Nausea with vomiting, unspecified (principal); C64.9 Malignant neoplasm of unspecified kidney, except renal pelvis; R10.9 Unspecified abdominal pain; E03.9 Hypothyroidism, unspecified; I10 Essential (primary) hypertension; Z87.891 Personal history of nicotine dependence; Z88.0 Allergy status to penicillin; Z88.2 Allergy status to sulfonamides; Z79.899 Other long term (current) drug therapy; Z79.82 Long term (current) use of aspirin; Z79.891 Long term (current) use of opiate analgesic
CPT/HCPCS: 80053; 81001; 83735; 85025; 96361; 96374; 96375; 96376; 99284-25; J1790; J2405; J7030; J7040

== ENCOUNTER 2020-06-10 07:20 | Emergency (ER) | payer MEDICARE, OTHER ==
[~2020-06-10] VITALS: Ht 167.6 cm; Wt 43.5 kg
== END 2020-06-10 10:07 | disposition home or self-care (01) ==
LOC: ED 07:20
DX: R20.0 Anesthesia of skin (principal); R53.1 Weakness; C64.9 Malignant neoplasm of unspecified kidney, except renal pelvis; C76.52 Malignant neoplasm of left lower limb; C41.2 Malignant neoplasm of vertebral column; E03.9 Hypothyroidism, unspecified; I10 Essential (primary) hypertension; F17.200 Nicotine dependence, unspecified, uncomplicated; Z88.0 Allergy status to penicillin; Z88.2 Allergy status to sulfonamides; Z79.899 Other long term (current) drug therapy; Z79.82 Long term (current) use of aspirin; Z79.891 Long term (current) use of opiate analgesic
CPT/HCPCS: 72128; 72131; 80053; 85025; 96374; 96375; 96376; 99285-25; J1170; J2405; J7040

== ENCOUNTER 2020-06-11 10:38 | Emergency (ER) | payer MEDICARE, OTHER ==
[~2020-06-11] VITALS: Ht 167.6 cm; Wt 41.3 kg
== END 2020-06-11 21:45 | disposition short-term general hospital (02) ==
LOC: ED 10:38
DX: C79.49 Secondary malignant neoplasm of other parts of nervous system (principal); C64.9 Malignant neoplasm of unspecified kidney, except renal pelvis; E03.9 Hypothyroidism, unspecified; I10 Essential (primary) hypertension; F17.200 Nicotine dependence, unspecified, uncomplicated; Z88.0 Allergy status to penicillin; Z88.2 Allergy status to sulfonamides; Z79.899 Other long term (current) drug therapy; Z79.82 Long term (current) use of aspirin; Z79.891 Long term (current) use of opiate analgesic
CPT/HCPCS: 72146; 72148; 80053; 85025; 96374; 96375; 96376; 99285-25; J1100; J1170; J7040

== ENCOUNTER 2020-07-02 14:25 | Inpatient (IN) | payer MEDICARE, OTHER ==
[~2020-07-02] VITALS: Ht 167.6 cm; Wt 45.0 kg
[~2020-07-02 14:25] MED LIST changes: -CHILDREN'S ASPI81 M1 PO; -CITALOPRAM HBR10 MG PO; +CITALOPRAM HBR40 MG PO; +DILAUDID8 MG PO; -HYDROMORPHONE HC2 MG PO; +LOW DOSE ASPIRI81 MG PO
[2020-07-02] MEDS ORDERED: PRILOSEC OTC20 MG PO (18:24)
[2020-07-02] MEDS ORDERED: OMEPRAZOLE20 MG PO ×2 (18:26)
[2020-07-02] MEDS ORDERED: DECADRON4 MG PO ×2 (18:28)
[2020-07-02] MEDS ORDERED: SENNA8.6 MG PO ×2 (18:29)
[2020-07-02] MEDS ORDERED: NEURONTIN300 MG PO ×2 (18:30)
--- NOTE | 2020-07-02 18:31 | NUR ---
IV SITE IS INTACT, NO REDNESS OR SWELLING NOTED, FLUIDS AND FLUSHES INFUSE EASILY. PT IS ALERT AND ORIENTED TALKING WITH HER DAUGHTER AT THE BEDSIDE, EATING PUDDING ON HER OWN.
[2020-07-02] MEDS ORDERED: XTAMPZA ER27 MG PO ×2 (18:33)
[2020-07-02] MEDS ORDERED: NARCAN4 MG NAS ×2 (18:35)
[2020-07-02] MEDS ORDERED: LIDODERM1 EACH TOP ×2 (18:38)
--- NOTE | 2020-07-02 19:10 | NUR ---
AT APPROXIMATLY 1740 PT ARIVED TO CCU FROM ER VIA STRETCHER. PT IS ALERT AND ORIENTED X4, REPORTS WEAKNESS, DENIES NAUSEA AT THIS TIME. PT IS HEAVY ONE PERSON ASSIST UP TO BEDSIDE COMMODE. PT UNABLE TO VOID ANY URINE, BRIEF IN PLACE, PT ASSISTED TO BED. MULTIPLE WARM BLANKETS GIVEN. PT HIPS AND KNEES SUPPORTED WITH PILLOWS. NOTED THAT PT APPEARS TO HAVE NO FATTY PADDING ON HER BODY, SKELITAL APPEARENCE. PT REPORTS SORE SPOTS ON ELBOWS AND HEELS. PADDED BANDAGE IN PLACE ON COCCIX. SKIN MOSTLY INTACT, BUT VERY FRAGILE. PT LUNGS ARE DIM IN ALL LOBES, MAINTAINS O2 SATS IN MID 90'S ON ROOM AIR.
--- NOTE | 2020-07-02 19:30 | NUR ---
pt report received. in room with day shift rn to meet patient and daughter. Pt resting in bed, floated on pillows. discussed plan of care for evening. IV fluids and diltiazem drip infusing. Xtampza taken from bedside and counted with RN Haily and place in thudge. 26 pills counted.
--- NOTE | 2020-07-02 20:17 | NUR ---
pt up to bsc. one person assist required. pt urine nab colored. Heart rate up into the 130s with activity. back in bed. diltazem drip titrated up to 7.5 mg/hr. pt given a lunch box and hot chocolate. call light within reach. will closely monitor.
--- NOTE | 2020-07-02 21:00 | NUR ---
pt resting with eyes closed. diltiazem drip infusing at 7.5 mg/hr. pt requesting pain medication. provided education about medication timing and dosage. all questions answered. call light within reach. no further needs at this time.
--- NOTE | 2020-07-02 22:00 | NUR ---
pt given prn medication for pain (see emar). reports generalized pain she rates 8/10 at this time. assisted with repositioning in bed, floated on pillows. Heels, elbows, and other bony prominences padded to protect skin.
--- NOTE | 2020-07-02 23:14 | NUR ---
diltiazem drip titrated down to 5 mg. pt heart rate regularly in the 70s with fluxuations up into 110's and down into the 60's. Rhythm is atrial fibrillation. The pt is sleeping, breathing even and unlabored. will continue to closely monitor.
--- NOTE | 2020-07-02 23:30 | NUR ---
PT REQUESTING TO BE REPOSITIONED IN THE BED. REPOISITOINED TO LEFT SIDE. ASSESSMENT COMPLETED AT THIS TIME. PT HEART RATE 70-90S WITH A AFIB RHYTHM. PT DENIES DIZZINESS, BUT REPORTS GENERALIZED PAIN SHE RATES 6/10. LUNGS SOUND DIMINISHED IN BOTH BASES. UPPER AIRWAYS REMAIN CLEAR. BONY PROMINENCES CUSHIONED. DILTIAZEM CONTINUES TO INFUSE AT 5 MG/HR. IV FLUIDS INFUSING. WILL CONTINUE TO MONITOR.
--- NOTE | 2020-07-03 00:50 | NUR ---
pt heart rate primariily into the 60s, but dropped into the high30's breifly. diltalizem drip placed on stand by at this time.
--- NOTE | 2020-07-03 02:00 | NUR ---
pt given oral cardizem and prn medication for pain at this time (see emar). Denies need to reposition. call light within reach. no further needs at this time.
--- NOTE | 2020-07-03 04:30 | NUR ---
In room for assessment. pt awakens to voice. states pain is 7/10 at this time. heart rate is 70 with an irregular rhythm. lungs sound clear in the upper airways and diminished in the basis. Assisted pt with repositioning. Started second IV in right arm and osito morning labs. Well tolerated. Pt denies the need to void at this time. plan to get up to bsc at 6 after pain medications. call light within reach. denies further needs at this time.
--- NOTE | 2020-07-03 06:15 | NUR ---
responded to patient call light. pt up to BSC to void. voided 275 mls of nba urine. given prn medication for pain (see emar). pt back in bed. heart rate maintained under 100 bpm with activity. call light within reach. no further needs at this time
--- NOTE | 2020-07-03 08:15 | NUR ---
PT WAKES EASILY WITH SOUND. PT IS AWAKE AND ORIENTED X4. PT ABLE TO SWALLOW PILL WITH SOME ASSISTANCE. PT HAS BREAKFAST IN FRONT OF HER, ASSISTED TO CUT INTO BITES. VITALS WNL THIS AM. PT REPORTS HER PAIN IS 7/10 GENERALIZED PAIN. PT REQUESTS ZOFRAN WITH PAIN MEDS.
--- NOTE | 2020-07-03 08:34 | NUR ---
PT ABLE TO EAT SOME BITES OF BREAKFAST, REINALDO PO HOT ZAKIA WELL. 4 MG IV ZOFRAN GIVEN AND PT SCHEDULED HOME PAIN MEDICATION. PT SITTING UP IN BED WATCHING TV.
--- NOTE | 2020-07-03 08:34 | NUR ---
BOTH IV SITES ARE INTACT, NO REDNESS OR SWELLING NOTED, PT DENIES PAIN AT EITHER SITE, BOTH SITES FLUSH EASILY.
--- NOTE | 2020-07-03 09:48 | NUR ---
MED REC COMPLETE
--- NOTE | 2020-07-03 10:55 | NUR ---
PT ONE PERSON ASSIST UP TO THE CHAIR FROM BED WITH WALKER AND GAIT BELT. COLIN FROM [facility] THERAPY WORKING WITH PT. PT IS COOPERATIVE, REMAINS ALERT AND ORIENTED.
--- NOTE | 2020-07-03 11:02 | NUR ---
PT REPORTS PAIN AT 7/10 AFTER MOVING FROM BED TO CHAIR, 2 MG PO DILAUDID GIVEN. PT REFUSES LUNCH AT THIS TIME. PT POSITIONED UP IN CHAIR WITH MULTIPLE PILLOWS UNDER HER FOR SUPPORT AND PADDING. CALL LIGHT IS WITHIN REACH. VITALS ARE WNL AT THIS TIME, HR IS 70'S-80'S. PT REMAINS ON ROOM AIR.
--- NOTE | 2020-07-03 12:15 | NUR ---
PT ONE PERSON ASSIST BACK TO BED FROM CHAIR. PT POSITIONED IN BED WITH PILLOWS FOR SUPPORT UNDER MARGO PROMINANCES, CALL LIGHT IS WITHIN REACH. PT REMAINS MID TO UPPER 90% SATURATION ON ROOM AIR. PT REPORTS "I THINK I WILL BE ASLEEP IN ABOUT FIVE MINUTES". PT REPORTS GENERALIZED PAIN IS TOLLERABLE AT THIS TIME.
--- NOTE | 2020-07-03 13:52 | EKG ---
[facility] [address] [facility] [place], [place] [address] Signed Sinus tachycardia Right atrial enlargement Anteroseptal infarct , age undetermined ST \T\ T wave abnormality, consider inferior ischemia Abnormal ECG No previous ECGs available Confirmed by CORY WILLAMS DO ([id number]) on 07/03/2020 1:52:12 PM Electronically Signed By: CORY WILLAMS DO 07/03/20 1352 PATIENT NAME: TREYVERNA Electrocardiogram DATE OF : 59 PHYSICIAN: CORY WILLAMS DO REPORT #: [id number] REPORT IS CONFIDENTIAL AND NOT TO BE RELEASED WITHOUT AUTHORIZATION
--- NOTE | 2020-07-03 15:37 | NUR ---
AT APPROXIMATLY 1524 PT REPORTS THAT PAIN HAS STILL NOT BEEN RELIEVED BY 2 MG PO DILAUDID GIVEN APPROXIMATLY 45 MINUTES PRIOR. CALLED TO NOTIFY OF UNRELIEVED PAIN, ORDER GIVEN FOR A ONE TIME DOSE OF IV DILAUDID 1 MG. ONCE ORDER IS VERIFIED AND MED IS DRAWN UP BACK INTO PT ROOM AT 1535 PT REPORTS PAIN IS NOW UNDER CONTROL, DILAUDID IV NOT GIVEN.
--- NOTE | 2020-07-03 16:50 | NUR ---
Pt recently moved in with daughter as she suffered a decline in the last 2 weeks and is unable to care for self. Pt has metastatic cancer and end stage kidney cancer. Spouse recently suffered stroke and is at [facility], pt states he has extensive paralysis. Pt states needs help in the home. 14 yo grandson is home at this time. Pt's daughter currently working and pt feels she is overwhelmed. Discussed [facility] home based care and I will assist her with [facility] [place] and call to see if she qualifies for any of the [facility] assistance. I discussed Hospice with her and she states she is waiting until after the holidays. I rosamaria follow up with her tomorrow.
--- NOTE | 2020-07-03 16:50 | NUR ---
IV SITE IN RT ARM REDRESSED, SITE FLUSHES EASILY, PT DENIES PAIN WITH FLUSH.
--- NOTE | 2020-07-03 17:20 | NUR ---
SHAMPOOED PT HAIR. BARRIER CREAM APPLIED TO BIALT LEGS AND FEET. PT REPOSTIONED FOR COMFORT IN BED.
--- NOTE | 2020-07-03 19:26 | NUR ---
REPORT RECEIVED, CARE OF PATIENT ASSUMED AT THIS TIME. PT IN BED EATING DINNER, DAUGHTER AT BEDSIDE DENIES ANY NEEDS AT THIS TIME.
--- NOTE | 2020-07-03 20:05 | NUR ---
IN ROOM FOR ASSESSMENT AND MEDICATION ADMINISTRATION. PT ALERT AND ORIENTED, WATCHING TELEVISION AND EATING DINNER. STATES HER PAIN LEVEL IS 8/10. SCHEDULED AND PRN PAIN MEDICATION GIVEN AT THIS TIME. PT HEART RATE IS IN THE 70'S. BLOOD PRESSURES STABLE. GIVEN ORAL CARDIZEM SCHEDULED (SEE EMAR). PLAN OF CARE ESTABLISHED. PT DENIES NEED TO REPOSITION. ALL BONY PROMINENCES ON PILLOWS. CALL LIGHT WITHIN REACH.
--- NOTE | 2020-07-03 21:00 | NUR ---
responded to patient call light. pt up to bsc commode. changed dressing on ccoycx. pt back in bed. oral lopressor given. denies furthe needs at this time.
--- NOTE | 2020-07-03 23:12 | NUR ---
PT RESTING WITH EYES CLOSED. BREATHING EVEN AND UNLABORED RR=10 SPO2 =97 PERCENT. CALL LIGHT AND PERSONAL BELONGINGS WITHIN REACH. WILL CONTINUE TO MONITOR.
--- NOTE | 2020-07-04 00:22 | NUR ---
RESPONDED TO CALL LIGHT. PT COMPLAINS OF NAUSEA. PRN MEDICATION GIVEN. WILL CONTINUE TO MONITOR.
--- NOTE | 2020-07-04 02:05 | NUR ---
UPT BSC TO VOID. STANDING AT BEDSIDE TYING PAJAOR BOTTOMS PT FELL, LANDING ON HER BUTTOCKS. DENIES INJURY OR PAIN. DR VEGA IN DEPT AND AWARE. ASSISTED BACK TO BED.
--- NOTE | 2020-07-04 02:24 | NUR ---
pt denies any increased pain after sliding to ground. vital signs remain within normal limits. oral cardizem given. will continue to monitor
--- NOTE | 2020-07-04 03:14 | NUR ---
PT RESTING WITH EYES CLOSED, BREATHING EVEN AND UNLABORED. CALL LIGHT WITHIN REACH. NO FURTHER NEEDS AT THIS TIME
--- NOTE | 2020-07-04 03:53 | NUR ---
IN ROOM FOR ASSESSMENT. PT AWAKE IN ROOM. COMPLAINS OF GENERALIZED PAIN SHE RATES 8/10. PRN MEDICATION FOR PAIN GIVEN (SEE EMAR). ASSITED PT WITH REPOSITIONING IN BED, CALL LIGHT WITHIN REACH, DENIES FURTHER NEEDS AT THIS TIME
--- NOTE | 2020-07-04 06:39 | NUR ---
PT UP TO BSC. ONE PERSON ASSIST REQUIRED. BACK IN BED. CALL LIGHT WITHIN REACH. NO FURTHER NEEDS AT THIS TIME
--- NOTE | 2020-07-04 07:15 | NUR ---
Report received, orders acknowledged.
--- NOTE | 2020-07-04 08:15 | NUR ---
Patient sitting up in bed watching tv and coloring. Vital signs taken, assessment complete. AM medications given. Patient pleasant and talkative, reports feeling generalized grogginess. Denies needs at this time, call light within reach.
--- NOTE | 2020-07-04 08:49 | NUR ---
Patient's daughter arrives to the unit
--- NOTE | 2020-07-04 09:45 | NUR ---
Patient reports pain of 8/10 generalized, prn dilaudid given
--- NOTE | 2020-07-04 10:18 | NUR ---
PT in room to work with patient
--- NOTE | 2020-07-04 11:49 | NUR ---
Dr. Contreras in room to assess patient and discuss POC
--- NOTE | 2020-07-04 12:00 | NUR ---
Notified by Dr. Contreras and CCU nurses pt will dc today. Called daughter to discuss needs for pt to return home. She states she can return at 1 pm or after 6pm. One would work better as her spouse will be there to assist with getting mom in the house. She would prefer a wc van, as pt has not been walking well. She states she is completly overwhelmed as mom has terminal illness and dad has been in a SNF. He has run out of payment source and they are discharging him next week. He is debilitated and also requiring care. He is a [place], we dcd to the SNF. Informed I will call the [facility] and see if there is any help. I also discussed Hospice with Nerissa for her mom. 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 Called Stephanie Barth at the [facility]. FAther was not set up with [facility] and daughter needs to call [facility] [place] and ask for pt to be scheduled. Called her back and updated. We discussed Hospice further. I gave her the names the Hospices in the area, as I offered to pt., but she declined. Nurses notifed pt will need to dc by 1 pm and they are already aware and I also requested they call wc van as I spoke with pt, she does not feel she will be able to walk to the house with her walker.
[2020-07-04] MEDS ORDERED: METOPROLOL TART25 MG PO ×2 (12:29)
[2020-07-04] MEDS ORDERED: DILTIAZEM 24HR180 M1 PO ×2 (12:29)
--- NOTE | 2020-07-04 12:30 | NUR ---
Notified by daughter she does not need an order for HH. HH was ordered by Chetan Zuniga when she was discharged last week.
--- NOTE | 2020-07-04 12:35 | NUR ---
ADMINISTERED POTASSIUM RIDER. PT APPEARS TO BE RESTING WITH EYES CLOSED.
--- NOTE | 2020-07-04 12:36 | NUR ---
PT GIVEN HOME MED CONTAINER OUT OF FRIDGE. PUT IN BAG INSIDE OF HEEL PROTECTER PER HER REQUEST.
--- NOTE | 2020-07-04 12:50 | NUR ---
Patient sitting up in chair watching tv. 180mg of cardizem given. Discharge instructions given. Patient verbalizes understanding to call PCP for follow-up appointment. All patient belongings collected. IVs D/C'd. Patient care ride available. Patient leaves unit via wheelchair with nursing staff.
[2020-07-05] MEDS ORDERED: XTAMPZA ER18 MG PO (16:53)
[2020-07-05] MEDS ORDERED: ATENOLOL50 MG PO (16:53)
[2020-07-05] MEDS ORDERED: REGLAN10 MG PO (19:15)
[2020-07-05] MEDS ORDERED: OXYCODONE HCL5 MG PO (19:15)
== END 2020-07-04 13:15 | disposition home health service (06) | DRG 309 ==
LOC: ED 14:25 → CCU 16:50
PROVIDERS: ADMIT Student in an Organized Health Care Education/Training Program; ATTEND Student in an Organized Health Care Education/Training Program
DX: I48.0 Paroxysmal atrial fibrillation (principal); C64.1 Malignant neoplasm of right kidney, except renal pelvis; C79.9 Secondary malignant neoplasm of unspecified site; R64 Cachexia; Z68.1 Body mass index [BMI] 19.9 or less, adult; Z20.828 Contact with and (suspected) exposure to other viral communicable diseases; R55 Syncope and collapse; E86.0 Dehydration; M79.7 Fibromyalgia; E03.9 Hypothyroidism, unspecified; I10 Essential (primary) hypertension; G89.3 Neoplasm related pain (acute) (chronic); Z66 Do not resuscitate; Z87.891 Personal history of nicotine dependence; Z88.0 Allergy status to penicillin; Z88.2 Allergy status to sulfonamides; Z79.82 Long term (current) use of aspirin; Z79.891 Long term (current) use of opiate analgesic; Z79.52 Long term (current) use of systemic steroids; Z79.899 Other long term (current) drug therapy
CPT/HCPCS: 71045; 80048; 80053; 83735; 83880; 84484; 85025; 93005; 93010; 96374; 97163; 97165; 99285-25; C9803; J1650; J2405; J3475; J7040; J7121; U0003

== ENCOUNTER 2020-07-05 15:54 | Emergency (ER) | payer MEDICARE, OTHER ==
[~2020-07-05] VITALS: Ht 167.6 cm; Wt 44.9 kg
[~2020-07-05 15:54] MED LIST changes: +DECADRON4 MG PO; +DILTIAZEM 24HR180 M1 PO; +LIDODERM1 EACH TOP; +METOPROLOL TART25 MG PO; +NARCAN4 MG NAS; +NEURONTIN300 MG PO; +OMEPRAZOLE20 MG PO; +PRILOSEC OTC20 MG PO; +SENNA8.6 MG PO; +XTAMPZA ER27 MG PO
[2020-07-05] MEDS ORDERED: XTAMPZA ER18 MG PO (16:53)
[2020-07-05] MEDS ORDERED: ATENOLOL50 MG PO (16:53)
[2020-07-05] MEDS ORDERED: REGLAN10 MG PO (19:15)
[2020-07-05] MEDS ORDERED: OXYCODONE HCL5 MG PO (19:15)
--- NOTE | 2020-07-05 20:47 | EKG ---
[facility] [address] [facility] [place] [address] Signed Sinus tachycardia Biatrial enlargement Anterolateral infarct (cited on or before 10-FEB-2020) Abnormal ECG When compared with ECG of 02-JUL-2020 14:53, Questionable change in initial forces of Lateral leads Nonspecific T wave abnormality has replaced inverted T waves in Inferior leads T wave amplitude has decreased in Anterior leads Confirmed by EUSEBIO VEGA MD ([id number]) on 07/05/2020 8:47:03 PM Electronically Signed By: EUSEBIO VEGA MD 07/05/20 2047 PATIENT NAME: VERNA YANG Electrocardiogram DATE OF : 59 PHYSICIAN: EUSEBIO VEGA MD REPORT #: [id number] REPORT IS CONFIDENTIAL AND NOT TO BE RELEASED WITHOUT AUTHORIZATION
== END 2020-07-05 20:32 | disposition home or self-care (01) ==
LOC: ED 15:54
DX: C64.1 Malignant neoplasm of right kidney, except renal pelvis (principal); I48.91 Unspecified atrial fibrillation; E83.42 Hypomagnesemia; E03.9 Hypothyroidism, unspecified; I10 Essential (primary) hypertension; F17.200 Nicotine dependence, unspecified, uncomplicated; Z88.0 Allergy status to penicillin; Z88.2 Allergy status to sulfonamides; Z79.899 Other long term (current) drug therapy; Z79.891 Long term (current) use of opiate analgesic; Z79.82 Long term (current) use of aspirin
CPT/HCPCS: 80053; 81001; 83690; 83735; 84484; 85025; 93005; 93010; 96365; 96375; 99284-25; J2270; J2765; J3475; J7030

== ENCOUNTER 2020-07-10 12:19 | Emergency (ER) | payer MEDICARE, OTHER ==
[~2020-07-10] VITALS: Ht 167.6 cm; Wt 40.8 kg
[~2020-07-10 12:19] MED LIST changes: +REGLAN10 MG PO
--- NOTE | 2020-07-10 16:53 | EKG ---
[facility] [address] [facility] [place] [address] Signed Normal sinus rhythm Biatrial enlargement Low voltage QRS Cannot rule out Anterior infarct (cited on or before 10-FEB-2020) T wave abnormality, consider inferolateral ischemia Abnormal ECG When compared with ECG of 05-JUL-2020 16:31, Significant changes have occurred Confirmed by VIVIANA JOHNSON MD ([id number]) on 07/10/2020 4:52:47 PM Electronically Signed By: VIVIANA JOHNSON MD 07/10/20 1653 PATIENT NAME: VERNA YANG Electrocardiogram DATE OF : 59 PHYSICIAN: VIVIANA JOHNSON MD REPORT #: [id number] REPORT IS CONFIDENTIAL AND NOT TO BE RELEASED WITHOUT AUTHORIZATION
== END 2020-07-10 16:07 | disposition home or self-care (01) ==
LOC: ED 12:19
DX: R55 Syncope and collapse (principal); E03.9 Hypothyroidism, unspecified; I10 Essential (primary) hypertension; Z87.891 Personal history of nicotine dependence; Z88.0 Allergy status to penicillin; Z88.2 Allergy status to sulfonamides; Z79.899 Other long term (current) drug therapy; Z79.891 Long term (current) use of opiate analgesic; Z79.82 Long term (current) use of aspirin
CPT/HCPCS: 80048; 81001; 85025; 93005; 93010; 99284-25; J7030